=== PATIENT | female | born 1940 | race Two or more races ===

== ENCOUNTER 2024-03-03 10:03 | Inpatient (IN) | payer BC, MEDICAID ==
[~2024-03-03] VITALS: Ht 167.6 cm; Wt 58.1 kg
[~2024-03-03 10:03] MED LIST: AMLO-212 PO; NEBI5TAB8 PO; PREG150C PO; PREG75CA PO
[2024-03-03 10:43] LABS: BASOPHILS % (AUTO) 0.5 % (0.0-2.0); EOSINOPHILS % (AUTO) 0.1 % (0.0-6.0); HEMATOCRIT 35 % (33-45); HEMOGLOBIN 11.6 g/dL (11.5-14.8); LYMPHOCYTES # (AUTO) 1.1 K/uL (0.8-4.8); LYMPHOCYTES % (AUTO) 13.6 % (20.0-44.0); MEAN CORPUSCULAR HEMOGLOBIN 31 PG (26.0-33.0); MEAN CORPUSCULAR HGB CONC 33 g/dl (31.0-36.0); MEAN CORPUSCULAR VOLUME 94 fL (82-100); MONOCYTES # (AUTO) 0.7 K/uL (0.1-1.30); MONOCYTES % (AUTO) 8.5 % (2.0-12.0); NEUTROPHILS # (AUTO) 6.4 K/uL (1.8-8.9); NEUTROPHILS % (AUTO) 77.3 % (43.0-81.0); PLATELET COUNT (AUTO) 171 K/uL (150-450); RED CELL DISTRIBUTION WIDTH 14.2 % (11.5-15.0); WHITE BLOOD COUNT (AUTO) 8.3 K/uL (4.3-11.0)
[2024-03-03 10:58] LABS: SERUM AMMONIA 6 umol/L (11-32)
[2024-03-03 11:02] LABS: CALCIUM, SERUM 8.7 mg/dL (8.5-10.1); CARBON DIOXIDE 29 mmol/L (21-32); CHLORIDE 108 mmol/L (98-107); CREATININE 0.7 mg/dL (0.6-1.3); GLUCOSE 105 mg/dL (74-106); POTASSIUM 3.7 mmol/L (3.5-5.1); SODIUM SERUM 144 mmol/L (136-145); UREA NITROGEN, BLOOD 18 mg/dL (7-18)
[2024-03-03 11:08] LABS: APPEARANCE,URINE CLEAR (CLEAR); BILIRUBIN,URINE NEGATIVE (NEGATIVE); BLOOD, URINE 1+ Ery/uL (NEGATIVE); COLOR,URINE YELLOW (YELLOW); KETONES,URINE TRACE mg/dL (NEGATIVE); LEUKOCYTE ESTERASE ,URINE NEGATIVE (NEGATIVE); NITRITE, URINE NEGATIVE (NEGATIVE); PROTEIN,URINE NEGATIVE (NEGATIVE); UGLUCOSE NEGATIVE (NEGATIVE); UROBILINOGEN,URINE 0.2 EU/dL (0.2)
[2024-03-03 11:15] LABS: ALANINE AMINOTRANSFERASE 30 U/L (12-78); ALBUMIN 3.4 g/dL (3.4-5.0); ALCOHOL, BLOOD < 3 mg/dL (0-10); ALKALINE PHOSPHATASE 62 U/L (46-116); ASPARTATE AMINOTRANSFERASE 52 U/L (15-37); BILIRUBIN,DIRECT 0.3 mg/dL (0.0-0.2); BILIRUBIN,TOTAL 1.2 mg/dL (0.2-1.0); TOTAL PROTEIN, SERUM 6.4 g/dL (6.4-8.2)
[2024-03-03 11:24] LABS: SQUAMOUS EPITHELIAL CELL,UR Few /HPF (None Seen)
[2024-03-03 11:25] LABS: BACTERIA,URINE Rare /HPF (None Seen)
[2024-03-03 11:26] LABS: ADD URINE CULTURE NO; WBC,URINE 0-2 /HPF (0-3)
[2024-03-03] MEDS ORDERED: IOHEXOL-350 100 ML VIAL IV ONE ×2 (11:47→12:13)
[2024-03-03] MEDS ORDERED: IV NS 0.9% 250 ML IV ONE ×2 (11:48→12:13)
[2024-03-03] MEDS ORDERED: IV NS 0.9% 1,000 ML IV SCH (12:00)
[2024-03-03] MEDS ORDERED: MORPHINE SULFATE INJ 2 MG/ML DISP.SYRIN IV PRN (12:00)
[2024-03-03] MEDS ORDERED: ONDANSETRON HCL/PF 4 MG/2 ML VIAL IVP PRN (12:00)
[2024-03-03] MEDS ORDERED: hydrALAZINE HCL IV 20 MG VIAL IV PRN (12:00)
[2024-03-03] MEDS ORDERED: ACETAMINOPHEN 325 MG TABLET PO PRN (14:00)
[2024-03-03] MEDS ORDERED: HYDROCODONE/APAP 5/325MG TABLET PO PRN (14:00)
[2024-03-03] MEDS ORDERED: METF-440 PO (14:26)
[2024-03-03] MEDS ORDERED: DONE5TAB34 PO (14:26)
[2024-03-03] MEDS ORDERED: ROSU5TAB PO (14:26)
[2024-03-03] MEDS ORDERED: METO-358 PO (14:26)
[2024-03-03] MEDS: IV 1/2NS 1000 ML 1,000 ML IV SCH (16:22)
[2024-03-03] MEDS: CEFTRIAXONE 1 G in IV D5W 50 ML IV ONE (16:22)
[2024-03-03] MEDS: ASPIRIN EC 81 MG TABLET.DR PO SCH (16:25)
[2024-03-03] MEDS: DOCUSATE SODIUM LIQ 100 MG/10 ML UDC PO SCH (16:25)
[2024-03-03] MEDS: METOPROLOL TARTRATE 25 MG TABLET PO SCH (20:27)
[2024-03-03] MEDS: HEPARIN SODIUM, PORCINE 5000 UNITS/1 ML VIAL SQ SCH (20:28)
[2024-03-03] MEDS: ATORVASTATIN 10 MG TABLET PO SCH (21:12)
[2024-03-03] MEDS: PREGABALIN 25 MG CAPSULE PO SCH (21:13)
[2024-03-04] VITALS: BP 131/66; TEMP 98.2; O2SAT 98
[2024-03-04] MEDS: ACETAMINOPHEN 325 MG TABLET PO PRN (00:45)
[2024-03-04 05:06] VITALS: BP 128/57; TEMP 99.3; O2SAT 97
[2024-03-04 06:31] LABS: ALANINE AMINOTRANSFERASE 31 U/L (12-78); ALBUMIN 2.8 g/dL (3.4-5.0); ALKALINE PHOSPHATASE 59 U/L (46-116); ASPARTATE AMINOTRANSFERASE 55 U/L (15-37); BILIRUBIN,TOTAL 1.1 mg/dL (0.2-1.0); CALCIUM, SERUM 8.2 mg/dL (8.5-10.1); CARBON DIOXIDE 26 mmol/L (21-32); CHLORIDE 106 mmol/L (98-107); CREATININE 0.7 mg/dL (0.6-1.3); GLUCOSE 91 mg/dL (74-106); MAGNESIUM 2.3 mg/dL (1.8-2.4); PHOSPHORUS 3.7 mg/dL (2.5-4.9); POTASSIUM 3.5 mmol/L (3.5-5.1); SODIUM SERUM 141 mmol/L (136-145); TOTAL PROTEIN, SERUM 5.9 g/dL (6.4-8.2); UREA NITROGEN, BLOOD 13 mg/dL (7-18)
[2024-03-04 06:33] LABS: CHOLESTEROL 155 mg/dL (<200); HDL CHOLESTEROL 85 mg/dL (40-60); LDL 61 mg/dL (0-99); TRIGLYCERIDES 65 mg/dL (30-150)
[2024-03-04 08:00] VITALS: BP 143/78; TEMP 98.1; O2SAT 94
[2024-03-04 08:40] LABS: BASOPHILS % (AUTO) 0.6 % (0.0-2.0); EOSINOPHILS # (AUTO) 0.1 K/uL (0.0-0.7); HEMATOCRIT 35 % (33-45); HEMOGLOBIN 11.5 g/dL (11.5-14.8); LYMPHOCYTES # (AUTO) 1.6 K/uL (0.8-4.8); LYMPHOCYTES % (AUTO) 22.8 % (20.0-44.0); MEAN CORPUSCULAR HEMOGLOBIN 30 PG (26.0-33.0); MEAN CORPUSCULAR HGB CONC 33 g/dl (31.0-36.0); MEAN CORPUSCULAR VOLUME 92 fL (82-100); MONOCYTES # (AUTO) 0.6 K/uL (0.1-1.30); MONOCYTES % (AUTO) 9.3 % (2.0-12.0); NEUTROPHILS # (AUTO) 4.5 K/uL (1.8-8.9); NEUTROPHILS % (AUTO) 65.3 % (43.0-81.0); PLATELET COUNT (AUTO) 168 K/uL (150-450); RED CELL DISTRIBUTION WIDTH 14.5 % (11.5-15.0); WHITE BLOOD COUNT (AUTO) 6.9 K/uL (4.3-11.0)
[2024-03-04] MEDS: ENOXAPARIN SODIUM 60 MG/0.6 ML DISP.SYRIN SQ SCH (08:41)
[2024-03-04] MEDS: POLYETHYLENE GLYCOL 3350 17 GM POWD.PACK PO SCH (08:41)
[2024-03-04] MEDS ORDERED: AMLODIPINE BESYLATE 5 MG TABLET PO SCH (09:00)
[2024-03-04] MEDS ORDERED: IOHEXOL-350 100 ML VIAL IV ONE (14:20)
[2024-03-04] MEDS ORDERED: IV NS 0.9% 250 ML IV ONE (14:20)
[2024-03-04] MEDS: METOPROLOL TARTRATE INJ 5 MG/5 ML AMPUL IVP PRN (14:40)
[2024-03-04] MEDS ORDERED: METOPROLOL TARTRATE INJ 5 MG/5 ML AMPUL ONE (14:49)
[2024-03-04] MEDS: NITROGLYCERIN 0.4 MG/TAB BOTTLE SL ONE (15:09)
[2024-03-04 20:00] VITALS: BP 119/72; TEMP 98.2; O2SAT 95
[2024-03-05] VITALS: BP 117/95; TEMP 98.2; O2SAT 98
[2024-03-05] MEDS: IV 1/2NS 1000 ML 1,000 ML IV PRN (01:28)
[2024-03-05 06:38] LABS: BASOPHILS % (AUTO) 0.3 % (0.0-2.0); EOSINOPHILS # (AUTO) 0.2 K/uL (0.0-0.7); EOSINOPHILS % (AUTO) 2.6 % (0.0-6.0); HEMATOCRIT 37 % (33-45); HEMOGLOBIN 12.1 g/dL (11.5-14.8); LYMPHOCYTES # (AUTO) 1.3 K/uL (0.8-4.8); MEAN CORPUSCULAR HEMOGLOBIN 31 PG (26.0-33.0); MEAN CORPUSCULAR HGB CONC 33 g/dl (31.0-36.0); MEAN CORPUSCULAR VOLUME 94 fL (82-100); MONOCYTES # (AUTO) 0.6 K/uL (0.1-1.30); MONOCYTES % (AUTO) 9.6 % (2.0-12.0); NEUTROPHILS # (AUTO) 4.2 K/uL (1.8-8.9); NEUTROPHILS % (AUTO) 67.5 % (43.0-81.0); PLATELET COUNT (AUTO) 157 K/uL (150-450); RED BLOOD CELL COUNT(AUTO) 3.89 MIL/uL (4.0-5.2); RED CELL DISTRIBUTION WIDTH 14.5 % (11.5-15.0); WHITE BLOOD COUNT (AUTO) 6.2 K/uL (4.3-11.0)
[2024-03-05 07:32] LABS: ALANINE AMINOTRANSFERASE 27 U/L (12-78); ALBUMIN 2.7 g/dL (3.4-5.0); ALKALINE PHOSPHATASE 59 U/L (46-116); ASPARTATE AMINOTRANSFERASE 43 U/L (15-37); CALCIUM, SERUM 7.9 mg/dL (8.5-10.1); CARBON DIOXIDE 22 mmol/L (21-32); CHLORIDE 109 mmol/L (98-107); CREATININE 0.6 mg/dL (0.6-1.3); GLUCOSE 97 mg/dL (74-106); MAGNESIUM 2.4 mg/dL (1.8-2.4); PHOSPHORUS 3.8 mg/dL (2.5-4.9); POTASSIUM 3.6 mmol/L (3.5-5.1); SODIUM SERUM 144 mmol/L (136-145); TOTAL PROTEIN, SERUM 6.1 g/dL (6.4-8.2); UREA NITROGEN, BLOOD 11 mg/dL (7-18)
[2024-03-05 07:38] LABS: CREATINE KINASE, TOTAL 328 U/L (26-192)
[2024-03-05] MEDS: ENOXAPARIN SODIUM 40 MG/0.4 ML DISP.SYRIN SQ SCH (08:59)
[2024-03-05] MEDS ORDERED: CEPHALEXIN MONOHYDRATE 250 MG CAPSULE PO SCH (09:30)
[2024-03-05] MEDS: CEFTRIAXONE 1 G in IV D5W 50 ML IV SCH (10:16)
[2024-03-05] MEDS ORDERED: LORAZEPAM INJ 2 MG/ML VIAL IV PRN (14:30)
[2024-03-05] MEDS: LORAZEPAM INJ 2 MG/ML VIAL IM PRN (14:33)
[2024-03-05] MEDS: ZOLPIDEM TARTRATE 5 MG TABLET PO PRN (19:46)
[2024-03-06 08:00] VITALS: BP 142/82; TEMP 98.6; O2SAT 99
[2024-03-06] MEDS: LORAZEPAM INJ 2 MG/ML VIAL IM PRN (10:06)
[2024-03-06 11:00] VITALS: BP 130/74; TEMP 98.4; O2SAT 98
[2024-03-06 11:15] VITALS: BP 132/73; TEMP 98.4; O2SAT 97
[2024-03-06 11:30] VITALS: BP 128/88; TEMP 98.4; O2SAT 98
[2024-03-06 11:45] VITALS: BP 130/84; TEMP 98.4; O2SAT 97
[2024-03-06] MEDS ORDERED: CEPH250T PO (12:52)
[2024-03-06] MEDS ORDERED: CIPR-263 PO (12:57)
[2024-03-06] MEDS: CIPROFLOXACIN HCL 250 MG TABLET PO SCH (13:00)
[2024-03-06] MEDS ORDERED: GADOTERATE MEGLUMINE 5 MMOL/10 ML VIAL IV ONE (16:59)
== END 2024-03-06 17:00 | disposition home health service (06) | DRG 557 ==
LOC: ER 10:05 → TELE 12:10 → MED 03-05 13:26
PROVIDERS: ADMIT Internal Medicine; ATTEND Internal Medicine
DX: M62.82 Rhabdomyolysis (principal); I21.A1 Myocardial infarction type 2; E44.0 Moderate protein-calorie malnutrition; F03.911 Unspecified dementia, unspecified severity, with agitation; N39.0 Urinary tract infection, site not specified; I10 Essential (primary) hypertension; Z79.899 Other long term (current) drug therapy; E78.5 Hyperlipidemia, unspecified; R31.9 Hematuria, unspecified; W18.30XA Fall on same level, unspecified, initial encounter; Y92.9 Unspecified place or not applicable; N28.1 Cyst of kidney, acquired; I70.0 Atherosclerosis of aorta; N20.0 Calculus of kidney; Z79.84 Long term (current) use of oral hypoglycemic drugs; E11.9 Type 2 diabetes mellitus without complications; I25.10 Atherosclerotic heart disease of native coronary artery without angina pectoris; M79.652 Pain in left thigh; M79.651 Pain in right thigh
CPT/HCPCS: 36415; 70450-TC; 70496-TC; 70498-TC; 70551-TC; 71045-TC; 73564-TC; 74181-TC; 74182-TC; 75574; 76770-TC; 80048-TC; 80053-TC; 80061-TC; 80076-TC; 81001; 82140-TC; 82550-TC; 82553; 82962-TC; 83735-TC; 84100-TC; 84439-TC; 84443-TC; 84484-TC; 85025-TC; 87086-TC; 93307-TC; 97110-TC; 97116-TC; 97530-TC; A4223; A9575; G0378; G0480; J0696; J1644; J1650; J2060; J3490; J7030; J7050; J7060; Q9967